=== PATIENT | male | born 1985 | race Caucasian/White ===

== ENCOUNTER 2016-05-26 21:00 | Emergency (ER) | payer MEDICAID ==
[~2016-05-26] VITALS: Ht 182.9 cm; Wt 95.3 kg
[2016-05-26 21:00] VITALS: BP 157/109; PULSE 112; RESP 18; TEMP 98.1; O2SAT 97
[~2016-05-26 21:00] MED LIST: BEN50 PO; INSU100V9 SUBCUT; INSU10VI4 SUBCUT
--- NOTE | 2016-05-26 22:38 | NUR ---
Patient to ER bed 3 to gown for evaluation. Side rails up. Report given to ANUP CARDOZO.
--- NOTE | 2016-05-26 23:15 | NUR ---
Pt presents to ED via wheelchair with c/o lower back pain 11/25, chest discomfort, arm pain, and leg pain, generalized body discomfort, pain has been a chronic problem per pt. Pt stated he has h/o lower back injury, was able to move self with wheelchair, A&Ox4, denies SOB, denies N/V/D. Will continue to monitor
--- NOTE | 2016-05-26 23:20 | NUR ---
Pt appeared calm in bed, chatting with staffs, skin dry, intact.
--- NOTE | 2016-05-26 23:40 | NUR ---
MD Crain at bedside examining pt
[2016-05-26] MEDS ORDERED: NS 1000 ML BAG IV ONE (23:45)
[2016-05-26] MEDS ORDERED: ONDANSETRON HCL 4 MG/2 ML VIAL IVP ONE (23:45)
[2016-05-26] MEDS ORDERED: MORPHINE 4 MG/ML INJ. SYRINGE IVP ONE (23:45)
[2016-05-27 00:22] LABS: BASOPHILS % (AUTO) 0.6 % (0.0-2.0); EOSINOPHILS # (AUTO) 0.2 K/uL (0.0-0.4)
[2016-05-27 00:29] LABS: EOSINOPHILS % (AUTO) 3.1 % (0.0-4.0); HEMOGLOBIN 15.7 g/dL (14.0-18.0); LYMPHOCYTES # (AUTO) 1.5 K/uL (1.0-5.5); LYMPHOCYTES % (AUTO) 18.6 % (20.5-51.5); MEAN CORPUSCULAR HEMOGLOBIN 24 pg (27-31); MEAN CORPUSCULAR HGB CONC 32 % (32-36); MEAN CORPUSCULAR VOLUME 75 fL (79.0-98.0); MONOCYTES # (AUTO) 0.3 K/uL (0.0-1.0); NEUTROPHILS % (AUTO) 73.7 % (40.0-70.0); PLATELET COUNT (AUTO) 203 K/uL (130-430); RED BLOOD CELL COUNT(AUTO) 6.53 MIL/uL (4.2-6.2); RED CELL DISTRIBUTION WIDTH 14.1 % (9.0-15.0)
[2016-05-27 00:30] LABS: CALCIUM 9.8 mg/dL (8.4-11.0); CREATININE 1.02 mg/dL (0.55-1.30); POTASSIUM 4.1 mmol/L (3.5-5.1)
[2016-05-27] MEDS ORDERED: DIPHENHYDRAMINE INJ 50 MG/ML VIAL IVP ONE (00:30)
[2016-05-27 00:35] LABS: PROTHROMBIN TIME 10.7 SECS (9.5-12.5)
[2016-05-27 00:36] LABS: ALBUMIN 3.6 g/dL (3.4-4.8); TOTAL BILIRUBIN 0.5 mg/dL (0.0-1.0); TOTAL PROTEIN, SERUM 8.9 g/dL (6.4-8.3)
--- NOTE | 2016-05-27 00:39 | NUR ---
Pt taken off ED via gurney by radiologist for CT
--- NOTE | 2016-05-27 00:50 | NUR ---
Pt stated pain is not relied. MD marcelo notified, stated he will discuss with pt
[2016-05-27 00:53] LABS: BILIRUBIN,URINE NEGATIVE (NEGATIVE); BLOOD, URINE 2+ (NEGATIVE); CLARITY/URINE CLEAR (CLEAR); COLOR,URINE YELLOW (YELLOW); GLUCOSE,URINE 3+ (NEGATIVE); KETONES,URINE NEGATIVE (NEGATIVE); LEUKOCYTE ESTERASE ,URINE NEGATIVE (NEGATIVE); NITRITE, URINE NEGATIVE (NEGATIVE); PROTEIN URINE 3+ (NEGATIVE); UROBILINOGEN,URINE 0.2 (0.2-1.0)
[2016-05-27 00:56] LABS: BACTERIA,URINE RARE /HPF (None Seen); WBC,URINE 0-3 /HPF (0-3)
[2016-05-27 00:57] LABS: MUCUS,URINE None Seen /LPF (None Seen)
--- NOTE | 2016-05-27 01:20 | NUR ---
finger stick glucose 346, MD Crain aware. stated to finish NS bolus
[2016-05-27] MEDS ORDERED: INSULIN REGULAR, HUMAN 10 UNITS/0.1 ML INJ IVP ONE (01:30)
--- NOTE | 2016-05-27 02:05 | NUR ---
Finger stick sugar 273, MD marcelo notified.
--- NOTE | 2016-05-27 02:10 | NUR ---
MD marcelo at bedside evaluating pt
[2016-05-27] MEDS ORDERED: ONDANSETRON HCL 4 MG/2 ML VIAL IVP ONE (02:30)
--- NOTE | 2016-05-27 02:40 | NUR ---
Finger stick glucose 212, MD Crain notified. stated pt can be discharged
[2016-05-27 02:46] VITALS: BP 142/86; PULSE 102; RESP 18; TEMP 98.1; O2SAT 98
--- NOTE | 2016-05-27 02:46 | NUR ---
Patient given written and verbal discharge instructions and verbalizes understanding. ER MD Crain discussed with patient the results and treatment provided. Patient in stable condition. ID arm band removed. IV catheter removed intact and dressing applied, no active bleeding. Rx of norco soma given. Patient educated on pain management and to follow up with PMD. Pain Scale 0/10 Opportunity for questions provided and answered.
== END 2016-05-27 02:46 | disposition home or self-care (01) ==
LOC: SED 21:00
DX: S39.012A Strain of muscle, fascia and tendon of lower back, initial encounter (principal); E11.9 Type 2 diabetes mellitus without complications; Z99.3 Dependence on wheelchair; Z88.2 Allergy status to sulfonamides; Z88.1 Allergy status to other antibiotic agents; Z89.511 Acquired absence of right leg below knee; Z88.6 Allergy status to analgesic agent; W07.XXXA Fall from chair, initial encounter; Y93.89 Activity, other specified; Y92.89 Other specified places as the place of occurrence of the external cause; Y99.8 Other external cause status
CPT/HCPCS: 36415; 71010; 72131; 74176; 80053; 81000; 83605; 83874; 85025; 85610; 85730; 87040; 87086; 96361; 96374; 96375; 96376; 99285; J1200; J1815; J2270; J2405 ×2; J7030